=== PATIENT | male | born 1990 | race Caucasian/White ===

== ENCOUNTER 2017-09-25 15:33 | Inpatient (IN) | payer BC, OTHER ==
[~2017-09-25] VITALS: Ht 180.3 cm; Wt 72.6 kg
[2017-09-25] MEDS ORDERED: IBUPROFEN 600 MG TABLET PO PRN (22:00)
[2017-09-25] MEDS ORDERED: LOPERAMIDE HCL 2 MG CAPSULE PO PRN ×2 (22:00)
[2017-09-25] MEDS ORDERED: ONDANSETRON ODT 4 MG TAB.RAPDIS SL PRN (22:00)
[2017-09-25] MEDS ORDERED: ACETAMINOPHEN 325 MG TABLET PO PRN (22:00)
[2017-09-25] MEDS ORDERED: METHOCARBAMOL 750 MG TABLET PO PRN (22:00)
[2017-09-25] MEDS ORDERED: LORAZEPAM 2 MG/1 ML VIAL IM PRN (22:00)
[2017-09-25] MEDS ORDERED: diphenhydrAMINE 50 MG CAPSULE PO PRN (22:00)
[2017-09-25] MEDS ORDERED: ONDANSETRON 4 MG/2 ML VIAL IM PRN (22:00)
[2017-09-25] MEDS ORDERED: LORAZEPAM 1 MG TABLET PO PRN ×2 (22:00)
[2017-09-25] MEDS ORDERED: CLONIDINE HCL 0.1 MG TABLET PO PRN (22:00)
[2017-09-25] MEDS ORDERED: MAGNESIUM HYDROXIDE 30 ML LIQUID UDC PO PRN (22:00)
[2017-09-25] MEDS ORDERED: MIRALAX 17 GM POWD.PACK PO PRN (22:00)
[2017-09-25] MEDS ORDERED: BUPRENORPHINE HCL 2 MG TAB.SUBL SL PRN (22:00)
[2017-09-25] MEDS ORDERED: MAG HYDROX/AL HYDROX/SIMETH 30 ML LIQUID UDC PO PRN (22:00)
[2017-09-25] MEDS ORDERED: DICYCLOMINE HCL 20 MG TABLET PO PRN (22:00)
--- NOTE | 2017-09-25 22:00 | NUR ---
INTAKE ASSESSMENT BP: 126/77, HR:86, RR:16, SpO2: 96% T:98.0 Pt is in stable condition and is able to be admitted on the unit. Unit protocols regarding mediations and vitals signs every 4 hours were explained. Pt verbalized understanding. Will continue admission upon arrival on the unit.
[2017-09-25 22:31] LABS: *AMPHETAMINE, URINE NEGATIVE (NEGATIVE); *BARBITURATE, URINE NEGATIVE (NEGATIVE); *CANNABINOID, URINE NEGATIVE (NEGATIVE); *COCCAINE, URINE NEGATIVE (NEGATIVE); *OPIATE, URINE POSITIVE (NEGATIVE); *PHENCYCLIDINE SCREEN,URINE NEGATIVE (NEGATIVE)
--- NOTE | 2017-09-25 22:40 | NUR ---
ADMISSION NOTE Pt arrived ambulatory from [facility] Intake to the third floor accompanied by a COMMUNITY DIETITIAN at 2215. Pt is a 27 year old male admitted on 09/25/17 for Heroin withdrawal. Pt is full code with allergies to Cefaclor and Sulfa. He denies any history of seizures. Pt reports PMHx of depression and wisdom teeth extraction in 2007. He denies having a PCP. He reports home medications of Seroquel 200mg, and Wellbutrin 150 mg. Medications have been reconciled. Pt reports that he was in detox in July 2017 at [facility]. He reports his longest sobriety was for 9.5 months from September 2016-June 2017. He reports he is here because " I didn't have insurance. I've been using against my own will and I can't stop." He describes his current use as: 1. Heroin 2-2.5 grams IV daily for 2.5 months. Last use: 2 grams IV on 09/25/17 at 1300. He describes his withdrawal symptoms as: " restless legs, sweats, nausea, vomiting, diarrhea, anxiety and agitation" Upon assessment, pt is alert and oriented x4, speech is clear and audible. Pt noted to be mildly intoxicated. Pupils are pin point. Pt denies withdrawal symptoms at this time. Pt noted with restlessness during assessment. Heart rate regular. Denies chest pain or SOB. PERRLA, breathing is even and unlabored, lung sounds clear. Abdomen is soft and non-distended. Bowel sounds present in all quadrants, last BM 09/24/17. Pt reports that BM is regular. Pt's skin is warm, dry and intact. Pt noted with left and right antecubital track ignacio and swelling d/t IV drug use. No bleeding or drainage noted. Dr. Morris aware of pt's admission. Pt oriented to room and unit. Safety measures in place. Will continue to monitor.
--- NOTE | 2017-09-25 22:45 | NUR ---
LABS REFUSED Pt refused labs to be drawn. Informed pt that baseline labs will be drawn in the AM. Pt verbalized understanding. Will monitor.
[2017-09-26] VITALS: BP 121/78
[2017-09-26] MEDS ORDERED: BUPR-96 PO (01:38)
[2017-09-26] MEDS ORDERED: QUET200T PO (01:38)
--- NOTE | 2017-09-26 04:00 | NUR ---
VITALS REFUSED 0400 vitals were refused by pt d/t difficulty sleeping. COWS and CIWA deferred d/t pt lying in bed with eyes closed noted to be asleep. Breathing is even and unlabored, safety measures in place. Will continue to monitor.
--- NOTE | 2017-09-26 07:13 | NUR ---
END OF SHIFT Pt is 27 year old male admitted on 09/25/17 for Heroin withdrawal. He is scheduled to start a 5 day Subutex taper today (09/26/17). He did not receive or request PRN medications. He slept a total of 4 hrs, Intake: 1,033mL, Void: x1, BM:0. Pt was mildly intoxicated during admission, unable to assess COWS/CIWA. Breathing is even and unlabored, safety measures in place. Endorsed to AM shift.
--- NOTE | 2017-09-26 07:30 | NUR ---
Start of Shift Mushroom Growing Supervisor received report on 27 year old male admitted on 09/25/17 for medical management of Benzodiazepine and Opiate withdrawals. Pt endorses allergies to Sulfa and Cephlacor, full code and regular diet. Denies any PMH, PPH of depression and insomnia. Pt noted to have Left AC swelling with track ignacio. Pt will start his Subutex taper this morning. No PRN medication administered per report. No COWS or CIWA to this point d/t reported intoxication on admission. Mushroom Growing Supervisor encounters pt in room resting with eyes closed with rise and f all of chest noted. Even and unlabored respirations. Bed in low position with wheels locked and side rails up x2. Will continue to monitor, support and encourage according to plan of care.
[2017-09-26 08:41] VITALS: BP 96/48
[2017-09-26] MEDS: LACTOBACILLUS RHAMNOSUS GG 1 EACH CAPSULE PO SCH ×2 (08:53→20:12)
[2017-09-26] MEDS: DOXYCYCLINE HYCLATE 100 MG TABLET PO SCH ×2 (08:53→20:11)
[2017-09-26] MEDS: BUPRENORPHINE HCL 2 MG TAB.SUBL SL SCH ×3 (08:53→20:13)
[2017-09-26] MEDS ORDERED: HYDROXYZINE PAMOATE 25 MG CAPSULE PO PRN (09:00)
[2017-09-26] MEDS ORDERED: TUBERCULIN,PURIF.PROT.DERIV. 5 TU/0.1 ML TEST ID ONE (09:00)
[2017-09-26 13:34] VITALS: BP 119/78
[2017-09-26 13:45] LABS: ETHANOL < 3 MG/DL (0-0)
[2017-09-26 13:46] LABS: BASOPHILS # (AUTO) 0.1 K/uL (0.0-8.0); BASOPHILS % (AUTO) 0.9 % (0.0-2.0); EOSINOPHILS # (AUTO) 0.3 K/uL (0.0-0.7); EOSINOPHILS % (AUTO) 2.9 % (0.0-7.0); HEMATOCRIT 38.7 % (36.7-47.1); HEMOGLOBIN 13.3 g/dL (12.5-16.3); LYMPHOCYTES # (AUTO) 2.3 K/uL (20.0-40.0); MEAN CORPUSCULAR HEMOGLOBIN 31.2 uug (23.8-33.4); MEAN CORPUSCULAR HGB CONC 34 g/dL (32.5-36.3); MEAN CORPUSCULAR VOLUME 90.9 fL (73.0-96.2); MONOCYTES # (AUTO) 0.9 K/uL (2.0-10.0); MONOCYTES % (AUTO) 7.9 % (0.0-11.0); NEUTROPHILS # (AUTO) 7.4 K/uL (1.8-8.9); NEUTROPHILS % (AUTO) 67.3 % (38.5-71.5); PLATELET COUNT (AUTO) 252 K/uL (152-348); RED BLOOD CELL COUNT(AUTO) 4.26 MIL/uL (4.06-5.63); WHITE BLOOD COUNT (AUTO) 11.1 K/uL (3.6-10.2)
[2017-09-26 13:50] LABS: ALANINE AMINOTRANSFERASE 18 U/L (16-63); ALKALINE PHOSPHATASE 65 U/L (50-136); ASPARTATE AMINOTRANSFERASE < 5 U/L (15-37); BILIRUBIN,TOTAL 0.2 mg/dL (0.2-1.0); CARBON DIOXIDE 27 mmol/L (21-32); CHLORIDE 104 mmol/L (98-107); CREATININE 0.9 mg/dL (0.6-1.3); GLUCOSE 89 mg/dL (74-106); MAGNESIUM 1.7 mg/dL (1.8-2.4); POTASSIUM 4.5 mmol/L (3.5-5.1); TOTAL PROTEIN, SERUM 6.8 g/dL (6.4-8.2); UREA NITROGEN, BLOOD 7 mg/dL (7-18)
--- NOTE | 2017-09-26 15:26 | NUR ---
Endorsement Coke Still Cleaner endorsed care of 27 year old male admitted on 09/25/17 for medical management of Benzodiazepine and Opiate withdrawals. Pt endorses allergies to Sulfa and Cephlacor, full code and regular diet. Denies any PMH, PPH of depression and insomnia. Pt noted to have Left AC swelling with track ignacio. Pt will start his Subutex taper this morning. No PRN medication administered this shift. Pt started on Subutex taper, tolerating well with last COWS 12. Also performing CIWA d/t occasional Benzodiazepine use, last CIWA 6, recorded at 1230. Pt is calm, cooperative and pleasant. Makes needs known. Clear speech and though content, linear in thought process. Normal affect with congruent mood. Bed in low position with wheels locked and side rails up x2.
--- NOTE | 2017-09-26 15:31 | NUR ---
CONTINUATION OF CARE REPORT RECEIVED FROM NURSE GOING OFF SHIFT, THIS NURSE WILL BE RESUMING CARE OF PATIENT FOR THE REST OF THE SHIFT. 27YR OLD MALE ADMITTED TO [facility] ON 09/25/17 FOR A MEDICALLY SUPERVISED WITHDRAWAL FROM OPIATES AND BENZODIAZEPINES. HE IS ON A 5 DAY SUBUTEX TAPER, WILL CONTINUE TO FOLLOW MD PLAN OF CARE
[2017-09-26 16:00] VITALS: BP 117/68
--- NOTE | 2017-09-26 18:55 | NUR ---
END OF SHIFT : PATIENT IS A 29 YR OLD MALE ADMITTED TO [facility] ON 09/25/17 FOR A MEDICALLY SUPERVISED WITHDRAWAL FROM BENZODIAZEPINES, OPIATES AND METHAMPHETAMINES. MD HAS PLACED HIM ON A 5 DAY SUBUTEX/ATIVAN TAPER AND THIS IS DAY 1. HE HAS NOT STARTED SUBUTEX OF YET HE STATES HE IS NOT IN WITHDRAWAL YET. PATIENT APPEARS MALNOURISHED, DEPRESSED AND ANXIOUS, HE STATES LOSING 30LBS IN WEIGHT IN THE PAST FEW MONTHS, ORDER FOR BOOST SUPPLEMENT ADDED TO MEALS. PATIENT HAS AN APETITE AND IS EATING 100% OF ALL MEALS. PATIENT HAD A FLUID INTAKE OF 2175 ML, 2 VOIDS AND 1 BM. LAST COWS 10 AND CIWA 10 @ 1600. CONTINUE TO FOLLOW MD PLAN OF CARE. ENDORSED TO NIGHT NURSE. Addendum: 09/26/17 at 1858 by BRENNA TERRELL RN ERROR- WRONG PATIENT
--- NOTE | 2017-09-26 18:58 | NUR ---
END OF SHIFT: PATIENT IS A 27 YR OLD MALE ADMITTED TO [facility] ON 09/25/17 FOR A MEDICALLY SUPERVISED WITHDRAWAL FROM HEROIN. PATIENT STARTED A 5 DAY SUBUTEX TAPER TODAY TOLERATED WELL. HE HAS NOT REQUIRED OR REQUESTED ANY PRN MEDICATIONS THIS SHIFT. PATIENTS WITHDRAWAL SYMPTOMS INCLUDE: INCREASED ANXIETY, RESTLESS LEGS, YAWNING, GOOSE BUMPS AND LETHARGY.PATIENT HAD A FLUID INTAKE OF 1991 ML,3 VOIDS AND 0 BM. LAST COWS 10 AND CIWA 10 @ 1600. CONTINUE TO FOLLOW MD PLAN OF CARE. ENDORSED TO NIGHT NURSE.
--- NOTE | 2017-09-26 19:30 | NUR ---
START OF SHIFT Received 27 year old male patient admitted on 09/25/17 for Heroin withdrawal. Pt is alert and oriented x4. Pt is noted with anxiety, restlessness, agitation, body aches, piloerection, chills and sweats. Per endorsement, pt did not receive or request PRN medications. Pt reports his medications have been effective in relieving his withdrawal symptoms. Last COWS:10, CIWA:10 at 1600. Breathing is even and unlabored, safety measures in place. Will monitor
[2017-09-26 20:00] VITALS: BP 123/84
[2017-09-26] MEDS: CLONIDINE HCL 0.1 MG TABLET PO SCH (20:11)
[2017-09-26] MEDS: QUETIAPINE FUMARATE 200 MG TABLET PO SCH ×2 (20:12→21:00)
--- NOTE | 2017-09-26 22:00 | NUR ---
NON ADMINISTERED MEDICATION Pt requested to have his 2100 dose of Seroquel at 2200. Pt was noted to be asleep with eyes closed lying in bed. Seroquel 200 mg non administered d/t pt asleep. Safety measures in place. Will monitor.
--- NOTE | 2017-09-27 | NUR ---
VITALS/COWS/CIWA 0000 vitals were refused. COWS and CIWA deferred d/t pt lying in bed with eyes closed noted to be asleep. Breathing is even and unlabored, safety measures in place. Will monitor.
--- NOTE | 2017-09-27 04:00 | NUR ---
VITALS/COWS/CIWA 0400 vitals were refused. COWS and CIWA deferred d/t pt lying in bed with eyes closed noted to be asleep. Breathing is even and unlabored, safety measures in place. Will continue to monitor.
--- NOTE | 2017-09-27 07:02 | NUR ---
END OF SHIFT Pt is a 27 year old male patient admitted on 09/25/17 for Heroin withdrawal. He remains alert and oriented x4. He was noted with anxiety, restlessness, agitation, body aches, piloerection, chills and sweats during the shift. He did not receive or request any PRN medications. His 2100 dose of Seroquel was non administered d/t pt was asleep. He continues on PO antibiotic for Left antecubital cellulitis. He slept a total of 7 hrs, Intake: 1,000mL, Void: x2, BM:0, COWS:12, CIWA:12 at 1999. Breathing is even and unlabored, safety measures in place. Endorsed to AM shift.
--- NOTE | 2017-09-27 07:30 | NUR ---
START OF SHIFT Pt 27 y/o male admitted for heroin withdrawal. Pt received in room on bed with eyes closed resting, but easily arousable to name. Pt alert and oriented to name, place, and time. Perrla. Skin warm and moist to touch. Respirations even and unlabored. Bilateral hand tremors noted. Perspiration noted on pt's forehead. Pt with c/o chills and sweats this morning. Pt appears disheveled. Clothes and empty water bottles scattered throughout the room. Encouraged to maintain hygiene. It was reported that pt slept for 7 hours last night. Last reported cows=12 ciwa=12 @ 1999. Pt is on a 5 day subutex taper and is on day 2. Bed on lowest position with side rails x2 up for safety. Call light within reach.
[2017-09-27 08:00] VITALS: BP 114/78
[2017-09-27 08:06] LABS: HEPATITIS B SURFACE AG Negative (Negative)
[2017-09-27] MEDS: LACTOBACILLUS RHAMNOSUS GG 1 EACH CAPSULE PO SCH ×2 (08:52→20:35)
[2017-09-27] MEDS: buPROPion XL 150 MG TAB.SR.24H PO SCH (08:52)
[2017-09-27] MEDS: DOXYCYCLINE HYCLATE 100 MG TABLET PO SCH ×2 (08:53→20:35)
[2017-09-27] MEDS: CLONIDINE HCL 0.1 MG TABLET PO SCH ×3 (08:53→20:34)
[2017-09-27] MEDS ORDERED: BUPRENORPHINE HCL 2 MG TAB.SUBL SL SCH (09:00)
[2017-09-27] MEDS ORDERED: GABAPENTIN 300 MG CAPSULE PO ONE (10:45)
[2017-09-27] MEDS ORDERED: BUPRENORPHINE HCL 2 MG TAB.SUBL SL ONE (10:45)
[2017-09-27] MEDS ORDERED: MAGNESIUM OXIDE 400 MG TABLET PO ONE (10:45)
--- NOTE | 2017-09-27 10:58 | NUR ---
ONCE Pt with cows=11. Pt was seen by MD with new order for subutex sl 2mg one time noted and carried out.
[2017-09-27] MEDS ORDERED: KETOROLAC TROMETHAMINE 30 MG INJ IM PRN (11:00)
--- NOTE | 2017-09-27 11:58 | NUR ---
PRN EVAL Pt with cows=7.
[2017-09-27 12:00] VITALS: BP 115/79
--- NOTE | 2017-09-27 12:22 | NUR ---
Client was prompted to attend twice daily group counseling sessions.
[2017-09-27] MEDS: BUPRENORPHINE HCL 2 MG TAB.SUBL SL SCH ×2 (14:16→20:35)
[2017-09-27 16:00] VITALS: BP 100/61
--- NOTE | 2017-09-27 18:34 | NUR ---
END OF SHIFT Pt 27 y/o male admitted for heroin withdrawal. Pt alert and oriented to name, place, and time. Perrla. Skin warm and moist to touch. Respirations even and unlabored. Bilateral hand tremors noted. Pt appears disheveled. Food wrappings and empty water bottles scattered throughout the room. Encouraged to maintain hygiene. Pt observed mostly in room and recreational room throughout the day. Pt attended group activity. Pt was seen by MD today. Pt mediation compliant and tolerated well. No ASE noted. Cows=11@0800, 7@1200, and 9@1600. Ciwa=4@0800, 4 @1200, and 4@1600. Pt is on a 5 day subutex taper and is on day 2. Bed on lowest position with side rails x2 up for safety. Call light within reach.
--- NOTE | 2017-09-27 19:15 | NUR ---
Start of Shift Note: Patient is a 27 y.o male admitted on 09/25/17 for medically supervised withdrawal from Heroin. Patient is alert & oriented x4. Patient has a blunt affect, anxious mood and appears disheveled. Patient presented with complaints of sweating, chills, restlessness, dilated pupils, tremors, & goosebumps. No complaints of pain/discomfort noted. Patient is inocencio 5-day Subutex taper and tolerating well. Last COWS 9. Patient received a one time dose of Subutex during day shift and was effective per report. Vitals signs are closely monitored. Pt remained compliant with medications & treatment plan. Encourage pt to increase fluid intake for hydration. Educated patient of current plan of care for the night and medication regimen. Safety precaution in place. Bed locked in lowest position. Both side rails up. Call light within pt's reach. Will continue to monitor patient.
[2017-09-27 20:00] VITALS: BP 108/60
[2017-09-27] MEDS: GABAPENTIN 300 MG CAPSULE PO SCH (20:34)
[2017-09-27] MEDS: BACLOFEN 10 MG TABLET PO SCH (20:34)
[2017-09-27] MEDS: QUETIAPINE FUMARATE 200 MG TABLET PO SCH (20:35)
--- NOTE | 2017-09-28 07:23 | NUR ---
End of Shift Note: Patient is a 27 y.o male admitted on 09/25/17 for medically supervised withdrawal from Heroin. Patient remains stable at this time. Patient remains alert & oriented x4. Continues his Subutex taper and tolerating well. Patient continues to present with complaints of sweating, chills, restlessness, dilated pupils, tremors, & goosebumps Last COWS 9. No PRN medications received during my shift. Continue to closely monitor vitals signs and noted WNL. Patient remained compliant with treatment plan & medication regimen. Pt was educated of importance of group therapy to learn/develop coping skills to prevent relapse. Encourage pt to increase fluid intake. Fluid intake: 1355ml, Voided 2x with no bowel movement. Pt slept for 8 hours. All needs attended & met. Safety measures in place. Will endorse pt to day shift nurse.
--- NOTE | 2017-09-28 07:30 | NUR ---
START OF SHIFT Pt 27 y/o male admitted for heroin withdrawal. Pt received in room on bed with eyes closed resting, but easily arousable to name. Pt alert and oriented to name, place, and time. Perrla. Skin warm and moist to touch. Respirations even and unlabored. Bilateral hand tremors noted. Pt appears disheveled. Food wrappings, clothes, and empty water bottles scattered throughout the room. Pt appears with low motivation for self care. Encouraged to maintain hygiene. It was reported that pt slept for 8 hours last night. Last reported cows=9 and ciwa=6 @2100. Pt is on a 5 day subutex taper and is on day 3. Bed on lowest position with side rails x2 up for safety. Call light within reach.
[2017-09-28 08:00] VITALS: BP 84/45
[2017-09-28 08:30] VITALS: BP 100/60
[2017-09-28] MEDS: DOXYCYCLINE HYCLATE 100 MG TABLET PO SCH ×2 (09:03→20:30)
[2017-09-28] MEDS: buPROPion XL 150 MG TAB.SR.24H PO SCH (09:03)
[2017-09-28] MEDS: GABAPENTIN 300 MG CAPSULE PO SCH ×2 (09:03→20:30)
[2017-09-28] MEDS: LACTOBACILLUS RHAMNOSUS GG 1 EACH CAPSULE PO SCH ×2 (09:03→20:30)
[2017-09-28] MEDS: CLONIDINE HCL 0.1 MG TABLET PO SCH ×4 (09:03→20:31)
[2017-09-28] MEDS: BUPRENORPHINE HCL 2 MG TAB.SUBL SL SCH ×3 (09:04→20:31)
[2017-09-28] MEDS: BACLOFEN 10 MG TABLET PO SCH ×2 (09:04→20:30)
[2017-09-28 12:00] VITALS: BP 90/53
[2017-09-28 16:00] VITALS: BP 98/58
--- NOTE | 2017-09-28 18:35 | NUR ---
END OF SHIFT Pt 27 y/o male admitted for heroin withdrawal. Pt alert and oriented to name, place, and time. Perrla. Skin warm and moist to touch. Respirations even and unlabored. Bilateral hand tremors noted. Pt appears disheveled. Clothes scattered throughout the room. Encouraged to maintain hygiene. Pt appears with low motivation for self care. Pt observed mostly isolative to room today. Pt did attend group activity. Pt was seen by MD today. Pt mediation compliant and tolerated well. No ASE noted. Cows=9@0800, 9@1200, and 9@1600. Ciwa=4@0800, 4 @1200, and 4@1600. Pt is on a 5 day subutex taper and is on day 3. Bed on lowest position with side rails x2 up for safety. Call light within reach.
--- NOTE | 2017-09-28 19:15 | NUR ---
Start of Shift Note: Received patient from day shift nurse. Patient is alert & oriented x4. Patient has an anxious mood appears disheveled & unkempt. Patient presented with complaints of sweating, chills, restlessness, dilated pupils, tremors, mild discomfort. No complaints of pain/discomfort noted. Patient continues on his 5-day Subutex taper and tolerating well. Last COWS 9. No PRN medications received during day shift. Vitals signs are closely monitored. Pt remained compliant with medications & treatment plan. Encourage pt to increase fluid intake for hydration. Educated patient of current plan of care for the night and medication regimen. Safety precaution in place. Bed locked in lowest position. Both side rails up. Call light within pt's reach. Will continue to monitor patient.
[2017-09-28 20:00] VITALS: BP 105/59
[2017-09-28] MEDS: QUETIAPINE FUMARATE 200 MG TABLET PO SCH (20:30)
[2017-09-29] VITALS: BP 101/54
--- NOTE | 2017-09-29 07:12 | NUR ---
End of Shift Note: Patient remains stable at this time. Patient remains alert & oriented x4. Continues his Subutex taper and tolerating well. Patient continues to present with complaints of sweating, chills, restlessness, dilated pupils, tremors, mild discomfort. Last COWS 7. No PRN medications received during my shift. Continue to closely monitor vitals signs and noted WNL. Patient remained compliant with treatment plan & medication regimen. Pt was educated of importance of group therapy to learn/develop coping skills to prevent relapse. Encourage pt to increase fluid intake. Fluid intake: 1396ml, Voided 1x with no bowel movement. Pt slept for 5 hours. All needs attended & met. Safety measures in place. Will endorse pt to day shift nurse.
--- NOTE | 2017-09-29 07:30 | NUR ---
START OF SHIFT Pt 27 y/o male admitted for heroin withdrawal. Pt received in room on bed with eyes closed resting, but easily arousable to name. Pt alert and oriented to name, place, and time. Perrla. Skin warm and moist to touch. Respirations even and unlabored. Bilateral hand tremors noted. Pt appears disheveled. Clothes and empty water bottles scattered throughout the room. Pt appears with low motivation for self care. Encouraged to maintain hygiene. It was reported that pt slept for 5 hours last night. Last reported cows=7 and ciwa=4 @2100. Pt is on a 5 day subutex taper and is on day 4. Bed on lowest position with side rails x2 up for safety. Call light within reach.
[2017-09-29 08:00] VITALS: BP 109/60
[2017-09-29] MEDS: CLONIDINE HCL 0.1 MG TABLET PO SCH ×3 (09:12→20:25)
[2017-09-29] MEDS: BUPRENORPHINE HCL 2 MG TAB.SUBL SL SCH ×2 (09:12→20:25)
[2017-09-29] MEDS: buPROPion XL 150 MG TAB.SR.24H PO SCH (09:12)
[2017-09-29] MEDS: BACLOFEN 10 MG TABLET PO SCH ×3 (09:13→20:25)
[2017-09-29] MEDS: LACTOBACILLUS RHAMNOSUS GG 1 EACH CAPSULE PO SCH ×2 (09:13→20:25)
[2017-09-29] MEDS: DOXYCYCLINE HYCLATE 100 MG TABLET PO SCH ×2 (09:13→20:25)
[2017-09-29] MEDS: GABAPENTIN 300 MG CAPSULE PO SCH ×3 (09:13→20:25)
[2017-09-29 12:00] VITALS: BP 102/60
[2017-09-29 16:00] VITALS: BP 107/66
--- NOTE | 2017-09-29 18:17 | NUR ---
Therapist prompted client to attend daily group sessions. Client related that he would attend the next group.
--- NOTE | 2017-09-29 18:40 | NUR ---
END OF SHIFT Pt 27 y/o male admitted for heroin withdrawal. Pt alert and oriented to name, place, and time. Perrla. Skin warm and moist to touch. Respirations even and unlabored. Bilateral hand tremors noted. Pt appears disheveled. Empty water bottles scattered throughout the room. Encouraged to maintain hygiene. Pt appears with low motivation for self care. Pt observed mostly isolative to room today. Pt did attend group activity. Pt was seen by MD today. Pt mediation compliant and tolerated well. No ASE noted. Cows=9@0800, 9@1200, and 9@1600. Ciwa=4@0800, 4 @1200, and 7@1600. Pt is on a 5 day subutex taper and is on day 4. Bed on lowest position with side rails x2 up for safety. Call light within reach.
--- NOTE | 2017-09-29 19:15 | NUR ---
Start of Shift Note: Received patient from day shift nurse. Patient remains alert & oriented x4. Patient continues on his 5-day Subutex taper and tolerating well. Patient presented with complaints of sweating, chills, restlessness, dilated pupils, & anxiety. No complaints of pain/discomfort noted. Last COWS 9. No PRN medications received during day shift. Pt attended group activities today. Pt remained compliant with medications & treatment plan. Vitals signs are closely monitored. Encourage pt to increase fluid intake for hydration. Educated patient of current plan of care for the night and medication regimen. Safety precaution in place. Bed locked in lowest position. Both side rails up. Call light within pt's reach. Will continue to monitor patient.
[2017-09-29 20:00] VITALS: BP 106/62
[2017-09-29] MEDS: QUETIAPINE FUMARATE 200 MG TABLET PO SCH (20:25)
--- NOTE | 2017-09-30 07:06 | NUR ---
End of Shift Note: Patient remains alert & oriented x4. Continues his Subutex taper and tolerating well. Patient continues to present with complaints of sweating, chills, restlessness, dilated pupils, & anxiety. Last COWS 7. No PRN medications received during my shift. Patient remains stable at this time. Continue to closely monitor vitals signs and noted WNL. Patient remained compliant with treatment plan & medication regimen. Pt was educated of importance of group therapy to learn/develop coping skills to prevent relapse. Encourage pt to increase fluid intake. Fluid intake: 500ml, Voided 1x with no bowel movement. Pt slept for 9 hours. All needs attended & met. Safety measures in place. Will endorse pt to day shift nurse.
--- NOTE | 2017-09-30 07:40 | NUR ---
START OF SHIFT NOTE Received report from night nurse, 27 year old male admitted for Heroin withdrawal. Patient continues with Subutex taper tolerating well. Per endorsement patient did not receive any PRN'S, last CIWA-4, COWS-7, slept for 9 hours. Received patient alert awake Oriented x4. Patient appears anxious, agitated wants to go down for smoke. Patient is due for scheduled medications. Educated patient regarding plan of the day and medication regimen with good verbal understanding.
[2017-09-30 08:00] VITALS: BP 117/72
[2017-09-30] MEDS: buPROPion XL 150 MG TAB.SR.24H PO SCH (08:49)
[2017-09-30] MEDS: BACLOFEN 10 MG TABLET PO SCH ×3 (08:49→20:51)
[2017-09-30] MEDS: GABAPENTIN 300 MG CAPSULE PO SCH ×3 (08:49→20:51)
[2017-09-30] MEDS: DOXYCYCLINE HYCLATE 100 MG TABLET PO SCH ×2 (08:49→20:50)
[2017-09-30] MEDS: LACTOBACILLUS RHAMNOSUS GG 1 EACH CAPSULE PO SCH ×2 (08:49→20:51)
[2017-09-30] MEDS: CLONIDINE HCL 0.1 MG TABLET PO SCH ×3 (08:50→20:51)
[2017-09-30] MEDS ORDERED: BUPRENORPHINE HCL 2 MG TAB.SUBL SL SCH (09:00)
[2017-09-30 12:00] VITALS: BP 108/67
[2017-09-30 16:00] VITALS: BP 97/63
[2017-09-30] MEDS ORDERED: HYDR-3895 PO (16:57)
[2017-09-30] MEDS ORDERED: DICY20TA28 PO (16:57)
[2017-09-30] MEDS ORDERED: METH-406 PO (16:57)
[2017-09-30] MEDS ORDERED: CLON0.1T14 PO (16:57)
[2017-09-30] MEDS ORDERED: IBUP-1955 PO (16:57)
[2017-09-30] MEDS ORDERED: DIPH50CA37 PO (16:57)
--- NOTE | 2017-09-30 19:14 | NUR ---
END OF SHIFT NOTE Gave report to night nurse, patient presented with anxiety, agitation, lightheaded, chills. Patient was given scheduled medications and did not receive any PRN. Patient able to consumed 100% of his meals. Vital signs WNL. Patient set for d/c in AM. Encourage pt to develop coping skills and utilization of non pharmacological intervention. Patient participated in groups and activities. Patient was encouraged to participates in groups therapy session. Encourage diversional activities to alleviate anxiety. Patient denies any SI/HI. Safety measures in place. Patient endorsed to night nurse in stable condition.
--- NOTE | 2017-09-30 19:34 | NUR ---
START OF SHIFT NOTE Received report from outgoing nurse. Pt. is in room and is A/O to person, place, time, and purpose. Pt. presents with anxiety, depressed mood, and flat affect. Pt. denies any S/I or H/I. Pt. is compliant with treatment and attended group therapy sessions. Pt. has completed taper and received no PRN medications during previous shift. Pt. is being discharged tomorrow 10/01/17. Last COWS 4 and CIWA 3 @ 1600. Call light is within reach. Pt. will continue to be monitored and needs met.
[2017-09-30 20:00] VITALS: BP 113/70
[2017-09-30] MEDS: QUETIAPINE FUMARATE 200 MG TABLET PO SCH (20:50)
--- NOTE | 2017-10-01 00:09 | NUR ---
RN NOTE Pt. deferred COWS and CIWA, and refused V/S. Pt. is in bed w/ his eyes closed. Pt.'s breathing is even and unlabored.
--- NOTE | 2017-10-01 04:12 | NUR ---
RN NOTE Pt. deferred COWS and CIWA, and refused V/S. Pt. is in bed w/ his eyes closed. Pt.'s breathing is unlabored and even.
--- NOTE | 2017-10-01 07:04 | NUR ---
END OF SHIFT NOTE Endorsed report to oncoming nurse. Pt is a 27 y/o male admitted for medically supervised withdrawal from Heroine and Xanax. Pt. is in room and is A/O to person, place, time, and purpose. Pt. continues to present with anxiety, depressed mood, and flat affect. Pt. denies any S/I or H/I. Pt. has been compliant with treatment . Pt. has completed taper and received no PRN medications during previous shift. Pt.s fluid intake was 1146 ml. Pt. voided 3 times, had 1 BM, and slept for 6.75 hrs. Last COWS 6 and CIWA 5 @ 1999. Call light is within reach.
--- NOTE | 2017-10-01 07:24 | NUR ---
START OF SHIFT PT IS A 27 Y/O M ADMITTED ON 09/25/17 FOR MEDICALLY SUPERVISED BENZO AND OPIATE WITHDRAWAL. PT HAS COMPLETED TAPER YESTERDAY AND TOLERATED WELL. PT IS A/OX4, RESPIRATIONS EVEN AND UNLABORED, PT HAS A FLAT AFFECT, PRESENTS ANXIETY, RESTLESSNESS, AND DEPRESSIVE MOOD. LAST COWS 6 AND CIWA ; PT HAS BEEN GIVEN 0 PRNS DURING STOPER. PT IS TO BE DISCHARGED TODAY. SIDE RAILS UPX2, BED IN LOW POSITION. CALL LIGHT WITHIN REACH. SAFETY MEASURES IN PLACE. WILL CONTINUE TO MONITOR AND PROVIDE CARE UNTIL D/C.
[2017-10-01 08:00] VITALS: BP 109/60
[2017-10-01 08:31] VITALS: BP 109/60
[2017-10-01] MEDS: GABAPENTIN 300 MG CAPSULE PO SCH (08:31)
[2017-10-01] MEDS: BACLOFEN 10 MG TABLET PO SCH (08:31)
[2017-10-01] MEDS: CLONIDINE HCL 0.1 MG TABLET PO SCH (08:31)
[2017-10-01] MEDS: buPROPion XL 150 MG TAB.SR.24H PO SCH (08:32)
--- NOTE | 2017-10-01 09:28 | NUR ---
DISCHARGE NOTE PT IS IN STABLE CONDITION, VS WNL, A/OX4, RESPIRATIONS EVEN AND UNLABORED. PT HAS BEEN GIVEN D/C INSTRUCTIONS AND PT VERBALIZED UNDERSTANDING. LAST COWS 6 AND CIWA 6. AWARE OF PT'S D/C. PT HAS LEFT THE BUILDING WITH ALL BELONGINGS, PRESCRIPTIONS, AND DISCHARGE PAPERWORK.
== END 2017-10-01 09:28 | DRG 895 ==
LOC: SRC 21:15
PROVIDERS: ADMIT Internal Medicine; ATTEND Internal Medicine
PROC: HZ2ZZZZ Detoxification Services for Substance Abuse Treatment (ICD-10-PCS; principal; 2017-09-25)
PROC: HZ41ZZZ Group Counseling for Substance Abuse Treatment, Behavioral (ICD-10-PCS; 2017-09-27)
DX: F11.23 Opioid dependence with withdrawal (principal); E83.42 Hypomagnesemia; Z86.74 Personal history of sudden cardiac arrest; L03.114 Cellulitis of left upper limb; F13.230 Sedative, hypnotic or anxiolytic dependence with withdrawal, uncomplicated; Z59.0 Homelessness; Z59.1 Inadequate housing; F17.210 Nicotine dependence, cigarettes, uncomplicated; Z91.89 Other specified personal risk factors, not elsewhere classified; G47.00 Insomnia, unspecified; S51.032S Puncture wound without foreign body of left elbow, sequela; X78.8XXS Intentional self-harm by other sharp object, sequela; F32.9 Major depressive disorder, single episode, unspecified; Z81.1 Family history of alcohol abuse and dependence; Z88.2 Allergy status to sulfonamides
CPT/HCPCS: 36415; 70030-TC; 80307; 80361; 83735; 85025; 86592; 86705; 86803; 87340; 87806; A4663; G0480